=== PATIENT | male | born 1945 | race Two or more races ===

== ENCOUNTER 2023-05-21 16:57 | Emergency (ER) | payer OTHER ==
[~2023-05-21] VITALS: Ht 177.8 cm; Wt 65.8 kg
[2023-05-21] MEDS ORDERED: GOCOVRI68.5 MG PO (17:51)
[2023-05-21] MEDS ORDERED: RYTARY ER 36.21 EACH PO (17:51)
[2023-05-21] MEDS ORDERED: MYRBETRIQ50 MG PO (17:51)
[2023-05-21] MEDS ORDERED: LIPITOR40 M1 (17:51)
[2023-05-21] MEDS ORDERED: CEFADROXIL500 MG PO (20:36)
== END 2023-05-21 22:31 | disposition home or self-care (01) ==
LOC: EDBD 16:58 → ER 16:58
DX: S01.81XA Laceration without foreign body of other part of head, initial encounter (principal); W18.39XA Other fall on same level, initial encounter; Y93.89 Activity, other specified; Y92.018 Other place in single-family (private) house as the place of occurrence of the external cause; Y99.9 Unspecified external cause status; I10 Essential (primary) hypertension; G20.C Parkinsonism, unspecified
CPT/HCPCS: 12013; 70450; 72040; 90471; 90714; 99284; J1670